=== PATIENT | male | born 1935 | race Caucasian/White ===

== ENCOUNTER 2018-09-27 18:21 | Inpatient (IN) | payer MEDICARE, MEDICAID ==
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
[2018-09-27 19:19] LABS: % BASOPHILS 0.8 % (0.0-2.0); % EOSINOPHILS 2.2 % (0.0-5.0); % LYMPHOCYTES 14.2 % (20.0-50.0); % MONOCYTES 11.6 % (2.0-10.0); % NEUTROPHILS 71.2 % (40.0-80.0); BASOPHILE ABSOLUTE 0.1 Th/cumm (0-0.2); EOSINOPHILE ABSOLUTE 0.2 Th/cmm (0.1-0.4); HEMATOCRIT 38.7 % (41.0-60); HEMOGLOBIN 12.8 gm/dL (12-16); LYMPHOCYTE ABSOLUTE 1.1 Th/cmm (1.5-3.0); MEAN CELL VOLUME 92.3 fl (80-99); MEAN CORPUSCULAR HEMOGLOBIN 30.5 pg (27.0-31.0); MEAN CORPUSCULAR HGB CONC 33.1 pg (28.0-36.0); MEAN PLATELET VOLUME 7.2 fl; MONOCYTE ABSOLUTE 0.9 Th/cmm (0.3-1.0); NEUTROPHILE ABSOLUTE 5.3 Th/cmm (1.8-8.0); PLATELET COUNT 297 Th/cmm (150-400); RED BLOOD COUNT 4.19 Mil/cmm (3.80-5.80); RED CELL DISTRIBUTION WIDTH 13.1 % (11.5-20.0); WHITE BLOOD COUNT 7.6 Th/cmm (4.8-10.8)
[2018-09-27 19:34] LABS: ALB/GLOB RATIO 1.2 (1.0-1.8); ALBUMIN 3.5 gm/dL (4.2-5.5); ALKALINE PHOSPHATASE 71 U/L (34-104); ANION GAP 12.9 (7.0-16.0); BILIRUBIN,TOTAL 0.2 mg/dL (0.3-1.0); BUN - UREA NITROGEN 10 mg/dL (7-25); CALCIUM SERUM 8.4 mg/dL (8.6-10.3); CARBON DIOXIDE 24.5 mEq/L (21.0-31.0); CHLORIDE 97 mEq/L (98-107); CHOLESTEROL 125 mg/dL (<200); CREATININE - SERUM 0.7 mg/dL (0.7-1.3); GLUCOSE 113 mg/dL (70-105); HDL -HIGH DENSITY LIPOPROTEIN 46 mg/dL (23-92); POTASSIUM SERUM 3.4 mEq/L (3.5-5.1); SGOT 18 U/L (13-39); SGPT/ALT 10 U/L (7-52); SODIUM SERUM 131 mEq/L (136-145); TOTAL PROTEIN,SERUM 6.5 gm/dL (6.0-8.3); TRIGLYCERIDES 68 mg/dL (<150)
[2018-09-27] MEDS ORDERED: Potassium Chloride 20 mEq ER Tab PO ONE ×2 (19:58→20:00)
[2018-09-27 20:26] VITALS: BP 142/78
[2018-09-27] MEDS ORDERED: Magnesium Hydroxide (MOM) 30 mL UDC PO PRN (20:33)
[2018-09-27] MEDS ORDERED: Potassium Chloride Elixir 20 mEq /15 mL UDC PO ONE (20:40)
[2018-09-27 21:17] LABS: URINE SOURCE CLEAN C
[2018-09-27 21:21] LABS: CHOLESTEROL 127 mg/dL (<200); HDL -HIGH DENSITY LIPOPROTEIN 47 mg/dL (23-92); TRIGLYCERIDES 69 mg/dL (<150)
[2018-09-27 21:23] LABS: URINE BILIRUBIN NEGATIVE (NEGATIVE); URINE BLOOD TRACE (NEGATIVE); URINE GLUCOSE (UA) NEGATIVE (NEGATIVE); URINE KETONE TRACE mg/dL (NEGATIVE); URINE LEUKOCYTE ESTERASE NEGATIVE (NEGATIVE); URINE MICROSCOPIC INDICATED? YES; URINE NITRATE NEGATIVE (NEGATIVE); URINE PROTEIN NEGATIVE (NEGATIVE); URINE UROBILINOGEN 0.2 E.U./dL (0.2 - 1.0)
[2018-09-27 21:26] LABS: URINE CLARITY CLEAR (CLEAR); URINE COLOR YELLOW
[2018-09-27 21:31] LABS: URINE BACTERIA NONE SEEN /hpf (NONE SEEN); URINE EPITHELIAL CELLS OCCASIONAL /lpf (FEW); URINE WBC 0-2 /hpf (0-5)
[2018-09-28] MEDS: Pantoprazole 40 mg EC Tab PO SCH (06:35)
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
[2018-09-28 11:14] LABS: ANION GAP 14.2 (7.0-16.0); CHLORIDE 98 mEq/L (98-107); POTASSIUM SERUM 4.2 mEq/L (3.5-5.1); SODIUM SERUM 132 mEq/L (136-145)
[2018-09-28 11:15] LABS: BUN - UREA NITROGEN 10 mg/dL (7-25); CREATININE - SERUM 0.8 mg/dL (0.7-1.3); GLUCOSE 115 mg/dL (70-105)
[2018-09-28 11:19] LABS: CALCIUM SERUM 8.4 mg/dL (8.6-10.3)
[2018-09-28 11:48] LABS: MAGNESIUM 1.9 mg/dL (1.9-2.7)
[2018-09-28] MEDS: Calcium Carb/Vit D 500 mg/200 U Tab PO SCH ×2 (16:01→19:05)
[2018-09-28] MEDS: Multivitamin w/ Minerals Tab PO SCH (16:01)
[2018-09-28] MEDS: Aspirin 81mg Chewable Tab PO SCH ×2 (16:01→19:03)
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
--- NOTE | 2018-09-29 05:17 | General Progress Note ---
Subjective - Review of Systems Service Date: 09/29/18 Subjective: Awake, alert but confused. Having bouts of loose stools and diarrhea VS BP142/66 P 107 R20 T100 Objective - Results Result Diagrams: 09/27/18 19:08 09/28/18 09:19 Recent Labs: Laboratory Last Values WBC 7.6 Th/cmm (4.8-10.8) 09/27/18 19:08 RBC 4.19 Mil/cmm (3.80-5.80) 09/27/18 19:08 Hgb 12.8 gm/dL (12-16) 09/27/18 19:08 Hct 38.7 % (41.0-60) L 09/27/18 19:08 MCV 92.3 fl (80-99) 09/27/18 19:08 MCH 30.5 pg (27.0-31.0) 09/27/18 19:08 MCHC Differential 33.1 pg (28.0-36.0) 09/27/18 19:08 RDW 13.1 % (11.5-20.0) 09/27/18 19:08 Plt Count 297 Th/cmm (150-400) 09/27/18 19:08 MPV 7.2 fl 09/27/18 19:08 Neutrophils % 71.2 % (40.0-80.0) 09/27/18 19:08 Lymphocytes % 14.2 % (20.0-50.0) L 09/27/18 19:08 Monocytes % 11.6 % (2.0-10.0) H 09/27/18 19:08 Eosinophils % 2.2 % (0.0-5.0) 09/27/18 19:08 Basophils % 0.8 % (0.0-2.0) 09/27/18 19:08 Sodium 132 mEq/L (136-145) L 09/28/18 09:19 Potassium 4.2 mEq/L (3.5-5.1) 09/28/18 09:19 Chloride 98 mEq/L (98-107) 09/28/18 09:19 Carbon Dioxide 24.0 mEq/L (21.0-31.0) 09/28/18 09:19 Anion Gap 14.2 (7.0-16.0) 09/28/18 09:19 BUN 10 mg/dL (7-25) 09/28/18 09:19 Creatinine 0.8 mg/dL (0.7-1.3) 09/28/18 09:19 Est GFR ( Amer) TNP 09/28/18 09:19 Est GFR (Non-Af Amer) TNP 09/28/18 09:19 BUN/Creatinine Ratio 12.5 09/28/18 09:19 Glucose 115 mg/dL (70-105) H 09/28/18 09:19 Calcium 8.4 mg/dL (8.6-10.3) L 09/28/18 09:19 Magnesium 1.9 mg/dL (1.9-2.7) 09/28/18 09:19 Total Bilirubin 0.2 mg/dL (0.3-1.0) L 09/27/18 19:08 AST 18 U/L (13-39) 09/27/18 19:08 ALT 10 U/L (7-52) 09/27/18 19:08 Alkaline Phosphatase 71 U/L (34-104) 09/27/18 19:08 Total Protein 6.5 gm/dL (6.0-8.3) 09/27/18 19:08 Albumin 3.5 gm/dL (4.2-5.5) L 09/27/18 19:08 Globulin 3.0 gm/dL 09/27/18 19:08 Albumin/Globulin Ratio 1.2 (1.0-1.8) 09/27/18 19:08 Triglycerides 69 mg/dL (<150) 09/27/18 19:08 Cholesterol 127 mg/dL (<200) 09/27/18 19:08 LDL Cholesterol Direct 67 mg/dL (75-193) L 09/27/18 19:08 HDL Cholesterol 47 mg/dL (23-92) 09/27/18 19:08 TSH 0.76 uIU/ml (0.34-5.60) 09/27/18 19:08 Urine Source CLEAN C 09/27/18 19:33 Urine Color YELLOW 09/27/18 19:33 Urine Clarity CLEAR (CLEAR) 09/27/18 19:33 Urine pH 6.0 (4.6 - 8.0) 09/27/18 19:33 Ur Specific [place] 1.025 (1.005-1.030) 09/27/18 19:33 Urine Protein NEGATIVE mg/dL (NEGATIVE) 09/27/18 19:33 Urine Glucose (UA) NEGATIVE mg/dL (NEGATIVE) 09/27/18 19:33 Urine Ketones TRACE mg/dL (NEGATIVE) 09/27/18 19:33 Urine Blood TRACE (NEGATIVE) 09/27/18 19:33 Urine Nitrate NEGATIVE (NEGATIVE) 09/27/18 19:33 Urine Bilirubin NEGATIVE (NEGATIVE) 09/27/18 19:33 Urine Urobilinogen 0.2 E.U./dL (0.2 - 1.0) 09/27/18 19:33 Ur Leukocyte Esterase NEGATIVE (NEGATIVE) 09/27/18 19:33 Urine RBC 2-5 /hpf (0-5) H 09/27/18 19:33 Urine WBC 0-2 /hpf (0-5) 09/27/18 19:33 Ur Epithelial Cells OCCASIONAL /lpf (FEW) 09/27/18 19:33 Urine Bacteria NONE SEEN /hpf (NONE SEEN) 09/27/18 19:33 Urine Mucus FEW /lpf (FEW) 09/27/18 19:33 Valproic Acid 46.5 ug/mL (50.0-100.0) L 09/27/18 19:08 RPR NONREACTIVE (NONREACTIVE) 09/27/18 19:08 - Physical Exam Vitals and I&O: Vital Signs Temp 100.0 F 09/28/18 21:25 Pulse 107 09/28/18 21:25 Resp 20 09/28/18 21:25 BP 142/66 09/28/18 21:25 Pulse Ox 92 09/28/18 21:25 Intake & Output 09/28/18 09/28/18 09/29/18 06:59 18:59 06:59 Intake Total 850 240 Balance 850 240 Intake: Oral 850 240 Other: # Voids 3 2 # Bowel Movements 1 1 Stool Characteristics Soft Soft Liquid Formed Formed Active Medications: Current Medications Acetaminophen (Tylenol) 650 mg PO Q4H PRN PRN Reason: PAIN AND FEVER >100 Aspirin (Aspirin Chewable) 81 mg PO 0900 [facility] Stop: 11/27/18 08:59 Last Admin: 09/28/18 19:03 Dose: 81 mg Calcium/Vitamin D (Oscal W/Vitamin D) 1 tab PO DAILY ANDI Stop: 11/27/18 08:59 Last Admin: 09/28/18 19:05 Dose: 1 tab Divalproex Sodium (Depakote Dr) 500 mg PO HS [facility]; Protocol Stop: 11/27/18 20:59 Last Admin: 09/28/18 20:40 Dose: 500 mg Lisinopril (Zestril) 10 mg PO 0900 [facility]I Stop: 11/27/18 08:59 Last Admin: 09/28/18 19:04 Dose: 10 mg Lorazepam (Ativan) 0.5 mg PO Q4HR PRN; Protocol PRN Reason: Anxiety Stop: 10/27/18 21:42 Last Admin: 09/28/18 17:59 Dose: 0.5 mg Magnesium Hydroxide (Milk Of Magnesia) 30 ml PO DAILY PRN PRN Reason: IF NO BM IN 2 DAYS Stop: 11/26/18 20:32 Pantoprazole Sodium (Protonix) 40 mg PO QDAC [facility] Stop: 11/27/18 07:29 Last Admin: 09/28/18 06:35 Dose: 40 mg Zolpidem Tartrate (Ambien) 5 mg PO HS PRN PRN Reason: Insomnia Stop: 11/26/18 21:42 Last Admin: 09/29/18 00:43 Dose: 5 mg General: Alert, No acute distress HEENT: Atraumatic, PERRLA, EOMI Neck: Supple Cardiovascular: Regular rate Abdomen: Bowel sounds, Soft, no Distended Extremities: no Clubbing, no Cyanosis, no Edema Neurological: Normal gait - Procedures Procedures: Procedures Procedure Code Date OTHER GROUP THERAPY 94.44 07/18/12 RECREATIONAL THERAPY 93.81 07/18/12 Assessment/Plan - Problem List Patient Problems: All Active Problems COMBATIVENESS AND DEPRESSION (Acute) - Assessment Assessment: Current Active Problems Problem Status Onset COMBATIVENESS AND DEPRESSION Acute Agitation Dementia hypokalemia hyponatremia HTN DM Hyperlipidemia h/o TIA Mastoiditis PUD/GERD DJD Diarrhea - Plan Plan: admit to [facility] repeat labwork will add Lomotil
[2018-09-29] MEDS: Calcium Carb/Vit D 500 mg/200 U Tab PO SCH (08:37)
[2018-09-29] MEDS: Multivitamin w/ Minerals Tab PO SCH (08:37)
[2018-09-29] MEDS: Aspirin 81mg Chewable Tab PO SCH (08:39)
--- NOTE | 2018-09-29 15:47 | Progress Notes ---
DATE: 09/29/2018 SUBJECTIVE: Staff was spoken to. The patient is interviewed. Mood is noted to be irritable. Affect is constricted. Insight and judgment at this time are noted very much impaired, getting easily irritable and angry. The patient has no insight into his illness. Coping skills are also to be extremely poor. ASSESSMENT: The patient is still impulsive. PLAN: To continue the patient with Depakote and followup. [facility]# [id number]
[2018-09-29] MEDS: Diphenoxylate/Atropine 2.5mg Tab PO PRN (17:32)
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
--- NOTE | 2018-09-30 05:42 | General Progress Note ---
Subjective - Review of Systems Service Date: 09/30/18 Subjective: Awake, alert but confused. Having bouts of loose stools and diarrhea VS BP129/61 P 84 R18 T97.8 Objective - Results Result Diagrams: 09/27/18 19:08 09/28/18 09:19 Recent Labs: Laboratory Last Values WBC 7.6 Th/cmm (4.8-10.8) 09/27/18 19:08 RBC 4.19 Mil/cmm (3.80-5.80) 09/27/18 19:08 Hgb 12.8 gm/dL (12-16) 09/27/18 19:08 Hct 38.7 % (41.0-60) L 09/27/18 19:08 MCV 92.3 fl (80-99) 09/27/18 19:08 MCH 30.5 pg (27.0-31.0) 09/27/18 19:08 MCHC Differential 33.1 pg (28.0-36.0) 09/27/18 19:08 RDW 13.1 % (11.5-20.0) 09/27/18 19:08 Plt Count 297 Th/cmm (150-400) 09/27/18 19:08 MPV 7.2 fl 09/27/18 19:08 Neutrophils % 71.2 % (40.0-80.0) 09/27/18 19:08 Lymphocytes % 14.2 % (20.0-50.0) L 09/27/18 19:08 Monocytes % 11.6 % (2.0-10.0) H 09/27/18 19:08 Eosinophils % 2.2 % (0.0-5.0) 09/27/18 19:08 Basophils % 0.8 % (0.0-2.0) 09/27/18 19:08 Sodium 132 mEq/L (136-145) L 09/28/18 09:19 Potassium 4.2 mEq/L (3.5-5.1) 09/28/18 09:19 Chloride 98 mEq/L (98-107) 09/28/18 09:19 Carbon Dioxide 24.0 mEq/L (21.0-31.0) 09/28/18 09:19 Anion Gap 14.2 (7.0-16.0) 09/28/18 09:19 BUN 10 mg/dL (7-25) 09/28/18 09:19 Creatinine 0.8 mg/dL (0.7-1.3) 09/28/18 09:19 Est GFR ( Amer) TNP 09/28/18 09:19 Est GFR (Non-Af Amer) TNP 09/28/18 09:19 BUN/Creatinine Ratio 12.5 09/28/18 09:19 Glucose 115 mg/dL (70-105) H 09/28/18 09:19 Calcium 8.4 mg/dL (8.6-10.3) L 09/28/18 09:19 Magnesium 1.9 mg/dL (1.9-2.7) 09/28/18 09:19 Total Bilirubin 0.2 mg/dL (0.3-1.0) L 09/27/18 19:08 AST 18 U/L (13-39) 09/27/18 19:08 ALT 10 U/L (7-52) 09/27/18 19:08 Alkaline Phosphatase 71 U/L (34-104) 09/27/18 19:08 Total Protein 6.5 gm/dL (6.0-8.3) 09/27/18 19:08 Albumin 3.5 gm/dL (4.2-5.5) L 09/27/18 19:08 Globulin 3.0 gm/dL 09/27/18 19:08 Albumin/Globulin Ratio 1.2 (1.0-1.8) 09/27/18 19:08 Triglycerides 69 mg/dL (<150) 09/27/18 19:08 Cholesterol 127 mg/dL (<200) 09/27/18 19:08 LDL Cholesterol Direct 67 mg/dL (75-193) L 09/27/18 19:08 HDL Cholesterol 47 mg/dL (23-92) 09/27/18 19:08 TSH 0.76 uIU/ml (0.34-5.60) 09/27/18 19:08 Urine Source CLEAN C 09/27/18 19:33 Urine Color YELLOW 09/27/18 19:33 Urine Clarity CLEAR (CLEAR) 09/27/18 19:33 Urine pH 6.0 (4.6 - 8.0) 09/27/18 19:33 Ur Specific [place] 1.025 (1.005-1.030) 09/27/18 19:33 Urine Protein NEGATIVE mg/dL (NEGATIVE) 09/27/18 19:33 Urine Glucose (UA) NEGATIVE mg/dL (NEGATIVE) 09/27/18 19:33 Urine Ketones TRACE mg/dL (NEGATIVE) 09/27/18 19:33 Urine Blood TRACE (NEGATIVE) 09/27/18 19:33 Urine Nitrate NEGATIVE (NEGATIVE) 09/27/18 19:33 Urine Bilirubin NEGATIVE (NEGATIVE) 09/27/18 19:33 Urine Urobilinogen 0.2 E.U./dL (0.2 - 1.0) 09/27/18 19:33 Ur Leukocyte Esterase NEGATIVE (NEGATIVE) 09/27/18 19:33 Urine RBC 2-5 /hpf (0-5) H 09/27/18 19:33 Urine WBC 0-2 /hpf (0-5) 09/27/18 19:33 Ur Epithelial Cells OCCASIONAL /lpf (FEW) 09/27/18 19:33 Urine Bacteria NONE SEEN /hpf (NONE SEEN) 09/27/18 19:33 Urine Mucus FEW /lpf (FEW) 09/27/18 19:33 Valproic Acid 46.5 ug/mL (50.0-100.0) L 09/27/18 19:08 RPR NONREACTIVE (NONREACTIVE) 09/27/18 19:08 - Physical Exam Vitals and I&O: Vital Signs Temp 97.8 F 09/29/18 20:00 Pulse 84 09/29/18 20:00 Resp 18 09/29/18 20:00 BP 129/61 09/29/18 20:00 Pulse Ox 97 09/29/18 20:00 Intake & Output 09/29/18 09/29/18 09/30/18 06:59 18:59 05:59 Intake Total 240 760 Balance 240 760 Intake: Oral 240 760 Other: # Voids 2 5 # Bowel Movements 1 6 Stool Characteristics Liquid Soft Active Medications: Current Medications Acetaminophen (Tylenol) 650 mg PO Q4H PRN PRN Reason: PAIN AND FEVER >100 Aspirin (Aspirin Chewable) 81 mg PO 0900 [facility] Stop: 11/27/18 08:59 Last Admin: 09/29/18 08:39 Dose: 81 mg Calcium/Vitamin D (Oscal W/Vitamin D) 1 tab PO DAILY [facility] Stop: 11/27/18 08:59 Last Admin: 09/29/18 08:37 Dose: 1 tab Diphenoxylate HCl/Atropine (Lomotil) 1 tab PO TID PRN PRN Reason: Diarrhea Stop: 11/28/18 06:00 Last Admin: 09/29/18 17:32 Dose: 1 tab Divalproex Sodium (Depakote Dr) 500 mg PO HS [facility]; Protocol Stop: 11/27/18 20:59 Last Admin: 09/29/18 21:00 Dose: 500 mg Lisinopril (Zestril) 10 mg PO 0900 [facility] Stop: 11/27/18 08:59 Last Admin: 09/29/18 08:37 Dose: 10 mg Lorazepam (Ativan) 0.5 mg PO Q4HR PRN; Protocol PRN Reason: Anxiety Stop: 10/27/18 21:42 Last Admin: 09/28/18 17:59 Dose: 0.5 mg Magnesium Hydroxide (Milk Of Magnesia) 30 ml PO DAILY PRN PRN Reason: IF NO BM IN 2 DAYS Stop: 11/26/18 20:32 Pantoprazole Sodium (Protonix) 40 mg PO QDAC [facility] Stop: 11/27/18 07:29 Last Admin: 09/28/18 06:35 Dose: 40 mg Zolpidem Tartrate (Ambien) 5 mg PO HS PRN PRN Reason: Insomnia Stop: 11/26/18 21:42 Last Admin: 09/29/18 21:08 Dose: 5 mg General: Alert, No acute distress HEENT: Atraumatic, PERRLA, EOMI Neck: Supple Cardiovascular: Regular rate Abdomen: Bowel sounds, Soft, no Distended Extremities: no Clubbing, no Cyanosis, no Edema Neurological: Normal gait - Procedures Procedures: Procedures Procedure Code Date OTHER GROUP THERAPY 94.44 07/18/12 RECREATIONAL THERAPY 93.81 07/18/12 Assessment/Plan - Problem List Patient Problems: All Active Problems COMBATIVENESS AND DEPRESSION (Acute) - Assessment Assessment: Current Active Problems Problem Status Onset COMBATIVENESS AND DEPRESSION Acute Agitation Dementia hypokalemia hyponatremia HTN DM Hyperlipidemia h/o TIA Mastoiditis PUD/GERD DJD Diarrhea - Plan Plan: admit [facility] repeat labwork will add Lomotil
[2018-09-30] MEDS: Pantoprazole 40 mg EC Tab PO SCH (07:03)
[2018-09-30] MEDS: Aspirin 81mg Chewable Tab PO SCH (09:30)
[2018-09-30] MEDS: Diphenoxylate/Atropine 2.5mg Tab PO PRN ×3 (09:30→22:42)
[2018-09-30] MEDS: Multivitamin w/ Minerals Tab PO SCH (09:30)
[2018-09-30] MEDS: Calcium Carb/Vit D 500 mg/200 U Tab PO SCH (09:30)
--- NOTE | 2018-10-01 02:47 | Progress Notes ---
DATE: 09/30/2018 PSYCHIATRIC PROGRESS NOTE SUBJECTIVE: Staff was spoken to. The patient is interviewed. Mood is noted to be dysphoric. Coping skills are noted to be very poor. Insight and judgment are noted to be still impaired. No side effects to the medications are noted. The patient is having difficult time to cope with the stress. The patient has no insight into his illness. The patient gets easily upset. ASSESSMENT: The patient is still impulsive and needs to be redirected. PLAN: To closely monitor the patient and continue the valproic acid and follow the patient. JOB# [id number]
[2018-10-01] MEDS: Pantoprazole 40 mg EC Tab PO SCH (06:40)
--- NOTE | 2018-10-01 08:22 | General Progress Note ---
Subjective - Review of Systems Service Date: 10/01/18 Subjective: Awake, alert but confused. Having bouts of loose stools and diarrhea VS BP105/51 P 69 R15 T97.2 Objective - Results Result Diagrams: 09/27/18 19:08 09/28/18 09:19 Recent Labs: Laboratory Last Values WBC 7.6 Th/cmm (4.8-10.8) 09/27/18 19:08 RBC 4.19 Mil/cmm (3.80-5.80) 09/27/18 19:08 Hgb 12.8 gm/dL (12-16) 09/27/18 19:08 Hct 38.7 % (41.0-60) L 09/27/18 19:08 MCV 92.3 fl (80-99) 09/27/18 19:08 MCH 30.5 pg (27.0-31.0) 09/27/18 19:08 MCHC Differential 33.1 pg (28.0-36.0) 09/27/18 19:08 RDW 13.1 % (11.5-20.0) 09/27/18 19:08 Plt Count 297 Th/cmm (150-400) 09/27/18 19:08 MPV 7.2 fl 09/27/18 19:08 Neutrophils % 71.2 % (40.0-80.0) 09/27/18 19:08 Lymphocytes % 14.2 % (20.0-50.0) L 09/27/18 19:08 Monocytes % 11.6 % (2.0-10.0) H 09/27/18 19:08 Eosinophils % 2.2 % (0.0-5.0) 09/27/18 19:08 Basophils % 0.8 % (0.0-2.0) 09/27/18 19:08 Sodium 132 mEq/L (136-145) L 09/28/18 09:19 Potassium 4.2 mEq/L (3.5-5.1) 09/28/18 09:19 Chloride 98 mEq/L (98-107) 09/28/18 09:19 Carbon Dioxide 24.0 mEq/L (21.0-31.0) 09/28/18 09:19 Anion Gap 14.2 (7.0-16.0) 09/28/18 09:19 BUN 10 mg/dL (7-25) 09/28/18 09:19 Creatinine 0.8 mg/dL (0.7-1.3) 09/28/18 09:19 Est GFR ( Amer) TNP 09/28/18 09:19 Est GFR (Non-Af Amer) TNP 09/28/18 09:19 BUN/Creatinine Ratio 12.5 09/28/18 09:19 Glucose 115 mg/dL (70-105) H 09/28/18 09:19 Calcium 8.4 mg/dL (8.6-10.3) L 09/28/18 09:19 Magnesium 1.9 mg/dL (1.9-2.7) 09/28/18 09:19 Total Bilirubin 0.2 mg/dL (0.3-1.0) L 09/27/18 19:08 AST 18 U/L (13-39) 09/27/18 19:08 ALT 10 U/L (7-52) 09/27/18 19:08 Alkaline Phosphatase 71 U/L (34-104) 09/27/18 19:08 Total Protein 6.5 gm/dL (6.0-8.3) 09/27/18 19:08 Albumin 3.5 gm/dL (4.2-5.5) L 09/27/18 19:08 Globulin 3.0 gm/dL 09/27/18 19:08 Albumin/Globulin Ratio 1.2 (1.0-1.8) 09/27/18 19:08 Triglycerides 69 mg/dL (<150) 09/27/18 19:08 Cholesterol 127 mg/dL (<200) 09/27/18 19:08 LDL Cholesterol Direct 67 mg/dL (75-193) L 09/27/18 19:08 HDL Cholesterol 47 mg/dL (23-92) 09/27/18 19:08 TSH 0.76 uIU/ml (0.34-5.60) 09/27/18 19:08 Urine Source CLEAN C 09/27/18 19:33 Urine Color YELLOW 09/27/18 19:33 Urine Clarity CLEAR (CLEAR) 09/27/18 19:33 Urine pH 6.0 (4.6 - 8.0) 09/27/18 19:33 Ur Specific [place] 1.025 (1.005-1.030) 09/27/18 19:33 Urine Protein NEGATIVE mg/dL (NEGATIVE) 09/27/18 19:33 Urine Glucose (UA) NEGATIVE mg/dL (NEGATIVE) 09/27/18 19:33 Urine Ketones TRACE mg/dL (NEGATIVE) 09/27/18 19:33 Urine Blood TRACE (NEGATIVE) 09/27/18 19:33 Urine Nitrate NEGATIVE (NEGATIVE) 09/27/18 19:33 Urine Bilirubin NEGATIVE (NEGATIVE) 09/27/18 19:33 Urine Urobilinogen 0.2 E.U./dL (0.2 - 1.0) 09/27/18 19:33 Ur Leukocyte Esterase NEGATIVE (NEGATIVE) 09/27/18 19:33 Urine RBC 2-5 /hpf (0-5) H 09/27/18 19:33 Urine WBC 0-2 /hpf (0-5) 09/27/18 19:33 Ur Epithelial Cells OCCASIONAL /lpf (FEW) 09/27/18 19:33 Urine Bacteria NONE SEEN /hpf (NONE SEEN) 09/27/18 19:33 Urine Mucus FEW /lpf (FEW) 09/27/18 19:33 Valproic Acid 46.5 ug/mL (50.0-100.0) L 09/27/18 19:08 RPR NONREACTIVE (NONREACTIVE) 09/27/18 19:08 - Physical Exam Vitals and I&O: Vital Signs Temp 97.2 F 10/01/18 07:06 Pulse 101 10/01/18 07:06 Resp 15 10/01/18 07:06 BP 105/51 10/01/18 07:06 Pulse Ox 95 10/01/18 07:06 Intake & Output 09/30/18 10/01/18 10/01/18 18:59 06:59 18:59 Intake Total 700 120 Balance 700 120 Intake: Oral 700 120 Other: # Voids 2 3 # Bowel Movements 3 3 Stool Characteristics Liquid Active Medications: Current Medications Acetaminophen (Tylenol) 650 mg PO Q4H PRN PRN Reason: PAIN AND FEVER >100 Aspirin (Aspirin Chewable) 81 mg PO 0900 [facility] Stop: 11/27/18 08:59 Last Admin: 09/30/18 09:30 Dose: 81 mg Calcium/Vitamin D (Oscal W/Vitamin D) 1 tab PO DAILY [facility] Stop: 11/27/18 08:59 Last Admin: 09/30/18 09:30 Dose: 1 tab Diphenoxylate HCl/Atropine (Lomotil) 1 tab PO TID PRN PRN Reason: Diarrhea Stop: 11/28/18 06:00 Last Admin: 09/30/18 22:42 Dose: 1 tab Divalproex Sodium (Depakote Dr) 500 mg PO HS [facility]; Protocol Stop: 11/27/18 20:59 Last Admin: 09/30/18 20:37 Dose: 500 mg Lisinopril (Zestril) 10 mg PO 0900 [facility] Stop: 11/27/18 08:59 Last Admin: 09/30/18 09:31 Dose: 10 mg Lorazepam (Ativan) 0.5 mg PO Q4HR PRN; Protocol PRN Reason: Anxiety Stop: 10/27/18 21:42 Last Admin: 09/28/18 17:59 Dose: 0.5 mg Magnesium Hydroxide (Milk Of Magnesia) 30 ml PO DAILY PRN PRN Reason: IF NO BM IN 2 DAYS Stop: 11/26/18 20:32 Pantoprazole Sodium (Protonix) 40 mg PO QDAC [facility] Stop: 11/27/18 07:29 Last Admin: 10/01/18 06:40 Dose: 40 mg Zolpidem Tartrate (Ambien) 5 mg PO HS PRN PRN Reason: Insomnia Stop: 11/26/18 21:42 Last Admin: 09/30/18 20:37 Dose: 5 mg General: Alert, No acute distress HEENT: Atraumatic, PERRLA, EOMI Neck: Supple Cardiovascular: Regular rate Abdomen: Bowel sounds, Soft, no Distended Extremities: no Clubbing, no Cyanosis, no Edema Neurological: Normal gait - Procedures Procedures: Procedures Procedure Code Date OTHER GROUP THERAPY 94.44 07/18/12 RECREATIONAL THERAPY 93.81 07/18/12 Assessment/Plan - Problem List Patient Problems: All Active Problems COMBATIVENESS AND DEPRESSION (Acute) - Assessment Assessment: Current Active Problems Problem Status Onset COMBATIVENESS AND DEPRESSION Acute Agitation Dementia hypokalemia hyponatremia HTN DM Hyperlipidemia h/o TIA Mastoiditis PUD/GERD DJD Diarrhea - Plan Plan: admit to [facility] repeat labwork will add Lomotil
[2018-10-01] MEDS: Aspirin 81mg Chewable Tab PO SCH (09:41)
[2018-10-01] MEDS: Multivitamin w/ Minerals Tab PO SCH (09:41)
[2018-10-01] MEDS: Calcium Carb/Vit D 500 mg/200 U Tab PO SCH (09:41)
[2018-10-01] MEDS: Diphenoxylate/Atropine 2.5mg Tab PO PRN ×2 (10:31→15:06)
--- NOTE | 2018-10-01 21:18 | Progress Notes ---
DATE: 10/01/2018 PSYCHIATRIC PROGRESS NOTE SUBJECTIVE: Staff was spoken to. The patient is interviewed. Mood is noted to be irritable. Affect is constricted. Insight and judgment at this site impaired. Impulse control is noted to be limited. Coping skills are noted to be limited. The patient has been having difficult time to cope with the stress. The patient has been getting easily frustrated and irritable when he is redirected. No side effects to the medications are noted at this time. The patient is currently on 500 mg of Depakote. ASSESSMENT: The patient is still impulsive. PLAN: To continue the patient with the supportive therapy and followup. JOB# [id number]
[2018-10-02] MEDS: Pantoprazole 40 mg EC Tab PO SCH (06:34)
--- NOTE | 2018-10-02 08:13 | General Progress Note ---
Subjective - Review of Systems Service Date: 10/02/18 Subjective: Awake, alert but confused. Having bouts of loose stools and diarrhea VS BP105/55 P 94 R18 T97.8 Objective - Results Result Diagrams: 09/27/18 19:08 09/28/18 09:19 Recent Labs: Laboratory Last Values WBC 7.6 Th/cmm (4.8-10.8) 09/27/18 19:08 RBC 4.19 Mil/cmm (3.80-5.80) 09/27/18 19:08 Hgb 12.8 gm/dL (12-16) 09/27/18 19:08 Hct 38.7 % (41.0-60) L 09/27/18 19:08 MCV 92.3 fl (80-99) 09/27/18 19:08 MCH 30.5 pg (27.0-31.0) 09/27/18 19:08 MCHC Differential 33.1 pg (28.0-36.0) 09/27/18 19:08 RDW 13.1 % (11.5-20.0) 09/27/18 19:08 Plt Count 297 Th/cmm (150-400) 09/27/18 19:08 MPV 7.2 fl 09/27/18 19:08 Neutrophils % 71.2 % (40.0-80.0) 09/27/18 19:08 Lymphocytes % 14.2 % (20.0-50.0) L 09/27/18 19:08 Monocytes % 11.6 % (2.0-10.0) H 09/27/18 19:08 Eosinophils % 2.2 % (0.0-5.0) 09/27/18 19:08 Basophils % 0.8 % (0.0-2.0) 09/27/18 19:08 Sodium 132 mEq/L (136-145) L 09/28/18 09:19 Potassium 4.2 mEq/L (3.5-5.1) 09/28/18 09:19 Chloride 98 mEq/L (98-107) 09/28/18 09:19 Carbon Dioxide 24.0 mEq/L (21.0-31.0) 09/28/18 09:19 Anion Gap 14.2 (7.0-16.0) 09/28/18 09:19 BUN 10 mg/dL (7-25) 09/28/18 09:19 Creatinine 0.8 mg/dL (0.7-1.3) 09/28/18 09:19 Est GFR ( Amer) TNP 09/28/18 09:19 Est GFR (Non-Af Amer) TNP 09/28/18 09:19 BUN/Creatinine Ratio 12.5 09/28/18 09:19 Glucose 115 mg/dL (70-105) H 09/28/18 09:19 Calcium 8.4 mg/dL (8.6-10.3) L 09/28/18 09:19 Magnesium 1.9 mg/dL (1.9-2.7) 09/28/18 09:19 Total Bilirubin 0.2 mg/dL (0.3-1.0) L 09/27/18 19:08 AST 18 U/L (13-39) 09/27/18 19:08 ALT 10 U/L (7-52) 09/27/18 19:08 Alkaline Phosphatase 71 U/L (34-104) 09/27/18 19:08 Total Protein 6.5 gm/dL (6.0-8.3) 09/27/18 19:08 Albumin 3.5 gm/dL (4.2-5.5) L 09/27/18 19:08 Globulin 3.0 gm/dL 09/27/18 19:08 Albumin/Globulin Ratio 1.2 (1.0-1.8) 09/27/18 19:08 Triglycerides 69 mg/dL (<150) 09/27/18 19:08 Cholesterol 127 mg/dL (<200) 09/27/18 19:08 LDL Cholesterol Direct 67 mg/dL (75-193) L 09/27/18 19:08 HDL Cholesterol 47 mg/dL (23-92) 09/27/18 19:08 TSH 0.76 uIU/ml (0.34-5.60) 09/27/18 19:08 Urine Source CLEAN C 09/27/18 19:33 Urine Color YELLOW 09/27/18 19:33 Urine Clarity CLEAR (CLEAR) 09/27/18 19:33 Urine pH 6.0 (4.6 - 8.0) 09/27/18 19:33 Ur Specific [place] 1.025 (1.005-1.030) 09/27/18 19:33 Urine Protein NEGATIVE mg/dL (NEGATIVE) 09/27/18 19:33 Urine Glucose (UA) NEGATIVE mg/dL (NEGATIVE) 09/27/18 19:33 Urine Ketones TRACE mg/dL (NEGATIVE) 09/27/18 19:33 Urine Blood TRACE (NEGATIVE) 09/27/18 19:33 Urine Nitrate NEGATIVE (NEGATIVE) 09/27/18 19:33 Urine Bilirubin NEGATIVE (NEGATIVE) 09/27/18 19:33 Urine Urobilinogen 0.2 E.U./dL (0.2 - 1.0) 09/27/18 19:33 Ur Leukocyte Esterase NEGATIVE (NEGATIVE) 09/27/18 19:33 Urine RBC 2-5 /hpf (0-5) H 09/27/18 19:33 Urine WBC 0-2 /hpf (0-5) 09/27/18 19:33 Ur Epithelial Cells OCCASIONAL /lpf (FEW) 09/27/18 19:33 Urine Bacteria NONE SEEN /hpf (NONE SEEN) 09/27/18 19:33 Urine Mucus FEW /lpf (FEW) 09/27/18 19:33 Valproic Acid 46.5 ug/mL (50.0-100.0) L 09/27/18 19:08 RPR NONREACTIVE (NONREACTIVE) 09/27/18 19:08 - Physical Exam Vitals and I&O: Vital Signs Temp 97.8 F 10/02/18 06:02 Pulse 94 10/02/18 06:02 Resp 18 10/02/18 06:02 BP 105/55 10/02/18 06:02 Pulse Ox 99 10/02/18 06:02 Intake & Output 10/01/18 10/02/18 10/02/18 18:59 06:59 18:59 Intake Total 900 120 Balance 900 120 Intake: Oral 900 120 Other: # Voids 3 2 # Bowel Movements 1 2 Stool Characteristics Liquid Liquid Active Medications: Current Medications Acetaminophen (Tylenol) 650 mg PO Q4H PRN PRN Reason: PAIN AND FEVER >100 Aspirin (Aspirin Chewable) 81 mg PO 0900 [facility] Stop: 11/27/18 08:59 Last Admin: 10/01/18 09:41 Dose: Not Given Calcium/Vitamin D (Oscal W/Vitamin D) 1 tab PO DAILY [facility] Stop: 11/27/18 08:59 Last Admin: 10/01/18 09:41 Dose: Not Given Diphenoxylate HCl/Atropine (Lomotil) 1 tab PO TID PRN PRN Reason: Diarrhea Stop: 11/28/18 06:00 Last Admin: 10/01/18 15:06 Dose: 1 tab Divalproex Sodium (Depakote Dr) 500 mg PO HS [facility]; Protocol Stop: 11/27/18 20:59 Last Admin: 10/01/18 20:44 Dose: 500 mg Lisinopril (Zestril) 10 mg PO 0900 [facility] Stop: 11/27/18 08:59 Last Admin: 10/01/18 10:30 Dose: 10 mg Lorazepam (Ativan) 0.5 mg PO Q4HR PRN; Protocol PRN Reason: Anxiety Stop: 10/27/18 21:42 Last Admin: 09/28/18 17:59 Dose: 0.5 mg Magnesium Hydroxide (Milk Of Magnesia) 30 ml PO DAILY PRN PRN Reason: IF NO BM IN 2 DAYS Stop: 11/26/18 20:32 Metronidazole (Flagyl) 500 mg PO TID [facility] Stop: 10/11/18 13:59 Last Admin: 10/01/18 20:44 Dose: 500 mg Pantoprazole Sodium (Protonix) 40 mg PO QDAC [facility] Stop: 11/27/18 07:29 Last Admin: 10/02/18 06:34 Dose: 40 mg Zolpidem Tartrate (Ambien) 5 mg PO HS PRN PRN Reason: Insomnia Stop: 11/26/18 21:42 Last Admin: 10/02/18 00:43 Dose: 5 mg General: Alert, No acute distress HEENT: Atraumatic, PERRLA, EOMI Neck: Supple Cardiovascular: Regular rate Abdomen: Bowel sounds, Soft, no Distended Extremities: no Clubbing, no Cyanosis, no Edema Neurological: Normal gait - Procedures Procedures: Procedures Procedure Code Date OTHER GROUP THERAPY 94.44 07/18/12 RECREATIONAL THERAPY 93.81 07/18/12 Assessment/Plan - Problem List Patient Problems: All Active Problems COMBATIVENESS AND DEPRESSION (Acute) - Assessment Assessment: Current Active Problems Problem Status Onset COMBATIVENESS AND DEPRESSION Acute Agitation Dementia hypokalemia hyponatremia HTN DM Hyperlipidemia h/o TIA Mastoiditis PUD/GERD DJD Diarrhea - Plan Plan: admit to [facility] repeat labwork will add Lomotil Nutritional Asmnt/Malnutr-PDOC - Dietary Evaluation Malnutrition Findings (Please click <Entered> for more info): Nutritional Asmnt/Malnutrition Start: 10/01/18 17: 07 Text: Status: Complete Freq: Protocol: Document 10/01/18 17:07 PATRICIA (Rec: 10/01/18 17:17 [email or web address]) Nutritional Asmnt/Malnutrition Patient General Information Nutritional Screening Moderate Risk Diagnosis psychosis Pertinent Medical Hx/Surgical Hx HTN, Dm, dyslipidemia, PUD/ GERD, arthritis, DJD, dementia , hyperlipidemia, neurovascular disease Subjective Information Per nurse, pt had diarrhea from yesterday 09/30, liquid stool. Per EMR, PO intake 25- 50% over the past weekend. Pt is very confused noted. Current Diet Order/ Nutrition Support mech soft chopped, SHARONDA Pertinent Medications oscal w/vit D, protonix Pertinent Labs 09/28 Na 132, glucose 115, Ca 8 .4 Nutritional Hx/Data Height 1.6 m Height (Calculated Centimeters) 160.0 Current Weight (lbs) 65.771 kg Weight (Calculated Kilograms) 65.8 Weight (Calculated Grams) 85987.9 [place] Body Weight 124 Body Mass Index (BMI) 25.7 Weight Status Overweight GI Symptoms GI Symptoms None Last BM 10/01 x 3 Difficult in: None Skin Integrity/Comment: dryness Current %PO Poor (25-49%) Estimated Nutritional Goals BEE in Kcals: Using Current wt Calories/Kcals/Kg 23-27 Kcals Calculated 0490-9433 Protein: Using Current wt Protein g/k Protein Calculated 66 Fluid: ml 1518-1782ml (1ml/kcal) Nutritional Problem 1. Problem Problem inadequate food intake Etiology possible poor appetite or confusion Signs/Symptoms: PO intake 25-30% not meeting nutritional needs. Malnutrition Alert Is there a minimum of two criteria No selected? Query Text:Check all the applicable criteria. A minimum of two criteria are recommended for diagnosis of either severe or non-severe malnutrition. Malnutrition Related to Morbid Obesity Malnutrition related to morbid obesity No Intervention/Recommendation Comments 1. Continue with mech soft chopped NASdiet as ordered. Add Ensure Enlive TID to increase nutrition intake. 2. Monitor PO intake, wt, labs and skin integrity 3. F/U as moderate risk in 3-5 days, 10/04-10/06, PO check Expected Outcomes/Goals Expected Outcomes/Goals 1. PO intake to meet at least 75% of nutritional needs. 2. Wt stability, skin to remain intact, labs to approach WNL.
[2018-10-02] MEDS: Calcium Carb/Vit D 500 mg/200 U Tab PO SCH (08:46)
[2018-10-02] MEDS: Multivitamin w/ Minerals Tab PO SCH (08:47)
[2018-10-02] MEDS: Diphenoxylate/Atropine 2.5mg Tab PO PRN (09:30)
[2018-10-02] MEDS: Aspirin 81mg Chewable Tab PO SCH (09:30)
== END 2018-10-02 12:03 | disposition short-term general hospital (02) | DRG 885 ==
LOC: ER 18:21 → GERO 19:59
PROVIDERS: ADMIT Psychiatry & Neurology Psychiatry; ATTEND Psychiatry & Neurology Psychiatry
DX: F39 Unspecified mood [affective] disorder (principal); E87.1 Hypo-osmolality and hyponatremia; F03.91 Unspecified dementia, unspecified severity, with behavioral disturbance; I10 Essential (primary) hypertension; E11.9 Type 2 diabetes mellitus without complications; E78.5 Hyperlipidemia, unspecified; K21.9 Gastro-esophageal reflux disease without esophagitis; Z66 Do not resuscitate; M19.90 Unspecified osteoarthritis, unspecified site; E87.6 Hypokalemia; K27.9 Peptic ulcer, site unspecified, unspecified as acute or chronic, without hemorrhage or perforation; H70.90 Unspecified mastoiditis, unspecified ear; R19.7 Diarrhea, unspecified; Z86.73 Personal history of transient ischemic attack (TIA), and cerebral infarction without residual deficits; Z79.82 Long term (current) use of aspirin
CPT/HCPCS: 36415-UA; 80048-TC; 80053-TC; 80061-TC; 80164-TC; 81001-TC; 83036-90; 83735-TC; 84443-TC; 85025-TC; 86592-TC; 87230-TC; 93005; Z7610

== ENCOUNTER 2018-10-02 12:05 | Inpatient (IN) | payer MEDICARE, MEDICAID ==
[2018-10-02] MEDS ORDERED: Magnesium Hydroxide (MOM) 30 mL UDC PO PRN (14:16)
[2018-10-02] MEDS ORDERED: Diphenoxylate/Atropine 2.5mg Tab PO PRN (14:16)
--- NOTE | 2018-10-02 14:50 | Consultation ---
Consult Note - Consult Note Service Date: 10/02/18 Referring Physician: Alli Stevens Consult Note: PHYSICIAN Consultation Note: Date of Admission: 10/02/18 Purpose of Consultation: C diff colitis. Chief Complaint: Patient CATHY MELENDEZ was admitted to location Medical/ Surgical Unit I with POSITIVE C-DIFF. History of Present Illness: 83-year-old male with a past medical history of diabetes mellitus type 2, hypertension, dementia, brought to the ER for agitation. Patient was admitted to geropsychiatric unit. Patient developed diarrhea and stool for C. difficile NAAT performed and it came positive. Patient was transferred to acute care setting. ID consult was called for antibiotic management. Past Medical History: diabetes mellitus type 2, hypertension, dementia, Allergies Allergy/AdvReac Type Severity Reaction Status Date / Time No Known Allergies Allergy Verified 09/27/18 18:57 Laboratory Results - last 24 hr 10/02/18 14:30 POC Glucose 144 H Home Medication Medication Instructions Recorded Type Acetaminophen [Tylenol] 650 mg PO Q4H PRN tab 10/02/18 Rx Aspirin [Aspirin Chewable] 81 mg PO 0900 ctb 10/02/18 Rx Calcium Carb/Vit D 500mg/200U 1 tab PO DAILY tab 10/02/18 Rx [Oscal w/Vitamin D] Diphenoxylate/Atropine [Lomotil] 1 tab PO TID PRN tab 10/02/[address] [Depakote DR] 500 mg PO HS tcp 10/02/18 Rx Lisinopril [Zestril*] 10 mg PO 0900 tab 10/02/18 Rx Lorazepam [Ativan] 0.5 mg PO Q4HR PRN tab 10/02/18 Rx Magnesium Hydroxide [Milk of 30 ml PO DAILY PRN udc 10/02/18 Rx Magnesia] Multivitamin w/ Minerals 1 tab PO DAILY tab 10/02/18 Rx [Theragran M] Pantoprazole [Protonix] 40 mg PO QDAC ect 10/02/18 Rx Zolpidem Tartrate [Ambien] 5 mg PO HS PRN tab 10/02/18 Rx metroNIDAZOLE [Flagyl] 500 mg PO TID tab 10/02/18 Rx Current Medications Generic Name Dose Route Start Last Admin Trade Name Freq PRN Reason Stop Dose Admin Acetaminophen 650 mg 10/02/18 14:16 Tylenol PO 12/01/18 14:15 Q4H PRN PAIN AND FEVER >100 Aspirin 81 mg 10/03/18 09:00 Aspirin Chewable PO 12/02/18 08:59 0900 ANDI Calcium/Vitamin D 1 tab 10/03/18 09:00 Oscal W/Vitamin D PO 12/02/18 08:59 DAILY ANDI Diphenoxylate HCl/Atropine 1 tab 10/02/18 14:16 Lomotil PO 12/01/18 14:15 TID PRN Diarrhea Divalproex Sodium 500 mg 10/02/18 21:[address] PO 12/01/18 20:59 HS ANDI Protocol Lisinopril 10 mg 10/03/18 09:00 Zestril PO 12/02/18 08:59 0900 ANDI Lorazepam 0.5 mg 10/02/18 14:16 Ativan PO 12/01/18 14:15 Q4HR PRN Anxiety Protocol Magnesium Hydroxide 30 ml 10/02/18 14:16 Milk Of Magnesia PO 12/01/18 14:15 DAILY PRN IF NO BM IN 2 DAYS Metronidazole 500 mg 10/02/18 21:00 Flagyl PO 12/01/18 20:59 TID ANDI Pantoprazole Sodium 40 mg 10/03/18 07:30 Protonix PO 12/02/18 07:29 QDAC ANDI Zolpidem Tartrate 5 mg 10/02/18 14:16 Ambien PO 12/01/18 14:15 HS PRN Insomnia Review of Systems: A 12 point ROS was reviewed with the pertinent positive and negatives noted in the HPI. Social History Smoking Status Smoker, status unknown Physical Exam: General: Comfortable, not in acute distress. HEENT: Head: Normocephalic, atraumatic. Oral cavity: Moist, pink tongue. Eyes : Pallor is present icterus. Pupil PERRLA. EOMI. Face: Symmetrical. Neck: Supple, no JVD. No use of accessory neck muscles. Cardio: S1 and S2 within normal limit. Rhythm regular. No murmur no gallop. Respiratory: CTAP Abdominal: Soft nontender nondistended pulses present Genital/Urinary: Extremities: No cyanosis no clubbing no edema Neurological: Alert, awake, oriented. Assessment: 1. C diff colitis. 2. Leukocytosis. Mild. 3. Dementia. Plan: Continue vanco PO. Thnak you, Dr Balacuit for involving me in taking care of this patient. Signed, Ralph Borrero M.D. [id number]
[2018-10-02] MEDS: Vancomycin HCL 250 mg /10mL UDC PO SCH ×2 (17:26→20:31)
--- NOTE | 2018-10-03 00:17 | Progress Notes ---
DATE: 10/02/2018 PSYCHIATRIC PROGRESS NOTE: SUBJECTIVE: Staff was spoken to. The patient is interviewed. Mood is noted to be anxious and depressed. Affect is constricted. Insight and judgment are noted to be still impaired. Impulse control seems to be improving. No side effects to the medications are noted. The patient is noted to have been tested positive for Clostridium difficile and the patient is going to be possibly transfer to the medical floor for stabilization of this patient. No side effects to the medications are noted at this time. ASSESSMENT: The patient is still impulsive. PLAN: To continue the patient with the supportive therapy. We will follow the patient. [facility]# [id number]
[2018-10-03 05:39] LABS: % EOSINOPHILS 2.2 % (0.0-5.0); % LYMPHOCYTES 23.4 % (20.0-50.0); % MONOCYTES 8.9 % (2.0-10.0); % NEUTROPHILS 64.5 % (40.0-80.0); BASOPHILE ABSOLUTE 0.1 Th/cumm (0-0.2); EOSINOPHILE ABSOLUTE 0.2 Th/cmm (0.1-0.4); HEMATOCRIT 38.8 % (41.0-60); LYMPHOCYTE ABSOLUTE 2.6 Th/cmm (1.5-3.0); MEAN CORPUSCULAR HEMOGLOBIN 30.5 pg (27.0-31.0); MEAN CORPUSCULAR HGB CONC 33.5 pg (28.0-36.0); MEAN PLATELET VOLUME 7.5 fl; NEUTROPHILE ABSOLUTE 7.1 Th/cmm (1.8-8.0); PLATELET COUNT 396 Th/cmm (150-400); RED BLOOD COUNT 4.27 Mil/cmm (3.80-5.80)
[2018-10-03 06:00] LABS: BUN - UREA NITROGEN 32 mg/dL (7-25); CALCIUM SERUM 8.5 mg/dL (8.6-10.3); CARBON DIOXIDE 27.1 mEq/L (21.0-31.0); CHLORIDE 101 mEq/L (98-107); CREATININE - SERUM 0.8 mg/dL (0.7-1.3); GLUCOSE 109 mg/dL (70-105); SODIUM SERUM 136 mEq/L (136-145)
[2018-10-03] MEDS: Multivitamin w/ Minerals Tab PO SCH (08:31)
[2018-10-03] MEDS: Calcium Carb/Vit D 500 mg/200 U Tab PO SCH (08:31)
[2018-10-03] MEDS: Aspirin 81mg Chewable Tab PO SCH (08:31)
[2018-10-03] MEDS: Pantoprazole 40 mg EC Tab PO SCH (08:31)
[2018-10-03] MEDS: Vancomycin HCL 250 mg /10mL UDC PO SCH ×4 (08:33→21:03)
--- NOTE | 2018-10-03 08:35 | History and Physical ---
History of Present Illness - HPI Chief Complaint: Stool + C Difficile HPI: 83 y/o male who was transferred from [facility] to [facility] for +C Difficile Stool. Patient was initially admitted to [facility] for increased agitation and aggressive behavior noted at the SNF toward other residents. During his hospital course patient was found to have +c difficile in his stool. He was subsequently transferred in isolation in [facility] for further treatment and evaluation. Patient has a previous medical history of HTN,DM,hyperlipidemia, h/ o TIA, PUD/GERD, DJD, Dementia. Vital Signs: Last Vital Signs Temp 98.4 F 10/03/18 08:00 Pulse 91 10/03/18 08:00 Resp 18 10/03/18 08:00 BP 107/56 10/03/18 08:00 Pulse Ox 100 10/03/18 08:00 Past Medical History Cardiovascular: Report: HTN, Hyperlipidemia Pulmonary: Report: No Pertinent Hx [employer]OR: Report: TIA GI: Report: GERD Psych: Report: Psychosis Musculoskeletal: Report: No Pertinent Hx Rheumatologic: Report: No pertinent Hx Infectious Disease: Report: No Pertinent Hx Renal/: Report: No Pertinent Hx Endocrine: Report: Diabetes Dermatology: Report: No Pertinent Hx Family Medical History - Family Member Mother History Unknown: Yes Social History Smoke: No Alcohol: None Drugs: None Lives: Alone - Medications Home Medications: Home Medication Medication Instructions Recorded Type Acetaminophen [Tylenol] 650 mg PO Q4H PRN tab 10/02/18 Rx Aspirin [Aspirin Chewable] 81 mg PO 0900 ctb 10/02/18 Rx Calcium Carb/Vit D 500mg/200U 1 tab PO DAILY tab 10/02/18 Rx [Oscal w/Vitamin D] Diphenoxylate/Atropine [Lomotil] 1 tab PO TID PRN tab 10/02/[address] [Depakote DR] 500 mg PO HS tcp 10/02/18 Rx Lisinopril [Zestril*] 10 mg PO 0900 tab 10/02/18 Rx Lorazepam [Ativan] 0.5 mg PO Q4HR PRN tab 10/02/18 Rx Magnesium Hydroxide [Milk of 30 ml PO DAILY PRN udc 10/02/18 Rx Magnesia] Multivitamin w/ Minerals 1 tab PO DAILY tab 10/02/18 Rx [Theragran M] Pantoprazole [Protonix] 40 mg PO QDAC ect 10/02/18 Rx Zolpidem Tartrate [Ambien] 5 mg PO HS PRN tab 10/02/18 Rx metroNIDAZOLE [Flagyl] 500 mg PO TID tab 10/02/18 Rx - Allergies Allergies/Adverse Reactions: Allergies Allergy/AdvReac Type Severity Reaction Status Date / Time No Known Allergies Allergy Verified 09/27/18 18:57 Review of Systems - Review of Systems Constitutional: Report: No Significant Eyes: Report: No Significant ENT: Report: No Significant Respiratory: Report: No Significant Cardiovascular: Report: No Significant Gastrointestinal: Report: No Significant Genitourinary: Report: No Significant Musculoskeletal: Report: No Significant Skin: Report: No Significant Neurological: Report: No Significant Physical Exam - Physical Exam HEENT: Report: Ears Nose Throat within normal limits, Pharnyx within normal limits Neck: Report: Within normal limits Cardiovascular Systems: Report: +s1/s2 noted, Regular, Rate and Rhythm Respiratory: Report: Breath Sounds are within normal limits, Clear to Auscultation of lung crisostomo Abdomen: Report: Non-tender to palpation Back: Report: Inspection of back is within normal limits. Extremities: Report: Non-tender to palpation. Skin: Report: Color of skin is within normal limits - Lab Results All Lab Results last 24 hours: Laboratory Results - last 24 hr 10/02/18 10/03/18 10/03/18 14:30 04:45 04:45 WBC 11.0 H RBC 4.27 Hgb 13.0 Hct 38.8 L MCV 91.0 MCH 30.5 MCHC Differential 33.5 RDW 13.0 Plt Count 396 MPV 7.5 Neutrophils % 64.5 Lymphocytes % 23.4 Monocytes % 8.9 Eosinophils % 2.2 Basophils % 1.0 Sodium 136 Chloride 101 Carbon Dioxide 27.1 Anion Gap 11.7 BUN 32 H Creatinine 0.8 Est GFR ( Amer) TNP Est GFR (Non-Af Amer) TNP BUN/Creatinine Ratio 40.0 Glucose 109 H POC Glucose 144 H Calcium 8.5 L - Assessment Assessment: C difficile Colitis Psychosis HTN DM Hyperlipidemia H/o TIA mastoiditis PUD/GERD DJD Dementia - Plan Plan: continue current treatment
[2018-10-03 12:44] LABS: ANION GAP 11.6 (7.0-16.0); POTASSIUM SERUM 3.7 mEq/L (3.5-5.1)
--- NOTE | 2018-10-03 13:46 | Infectious Disease Prog Note ---
Infectious Disease Subjective - Review of Systems Service Date: 10/03/18 Subjective: 3 BMs yesterday. no fever. Infectious Disease Objective - Results Result Diagrams: 10/03/18 04:45 10/03/18 04:45 Recent Labs: Laboratory Last Values WBC 11.0 Th/cmm (4.8-10.8) H 10/03/18 04:45 RBC 4.27 Mil/cmm (3.80-5.80) 10/03/18 04:45 Hgb 13.0 gm/dL (12-16) 10/03/18 04:45 Hct 38.8 % (41.0-60) L 10/03/18 04:45 MCV 91.0 fl (80-99) 10/03/18 04:45 MCH 30.5 pg (27.0-31.0) 10/03/18 04:45 MCHC Differential 33.5 pg (28.0-36.0) 10/03/18 04:45 RDW 13.0 % (11.5-20.0) 10/03/18 04:45 Plt Count 396 Th/cmm (150-400) 10/03/18 04:45 MPV 7.5 fl 10/03/18 04:45 Neutrophils % 64.5 % (40.0-80.0) 10/03/18 04:45 Lymphocytes % 23.4 % (20.0-50.0) 10/03/18 04:45 Monocytes % 8.9 % (2.0-10.0) 10/03/18 04:45 Eosinophils % 2.2 % (0.0-5.0) 10/03/18 04:45 Basophils % 1.0 % (0.0-2.0) 10/03/18 04:45 Sodium 136 mEq/L (136-145) 10/03/18 04:45 Potassium 3.7 mEq/L (3.5-5.1) 10/03/18 04:45 Chloride 101 mEq/L (98-107) 10/03/18 04:45 Carbon Dioxide 27.1 mEq/L (21.0-31.0) 10/03/18 04:45 Anion Gap 11.6 (7.0-16.0) 10/03/18 04:45 BUN 32 mg/dL (7-25) H 10/03/18 04:45 Creatinine 0.8 mg/dL (0.7-1.3) 10/03/18 04:45 Est GFR ( Amer) TNP 10/03/18 04:45 Est GFR (Non-Af Amer) TNP 10/03/18 04:45 BUN/Creatinine Ratio 40.0 10/03/18 04:45 Glucose 109 mg/dL (70-105) H 10/03/18 04:45 POC Glucose 144 MG/DL (70 - 105) H 10/02/18 14:30 Calcium 8.5 mg/dL (8.6-10.3) L 10/03/18 04:45 - Physical Exam Vitals and I&O: Vital Signs Temp 98.0 F 10/03/18 11:30 Pulse 86 10/03/18 11:30 Resp 18 10/03/18 11:30 BP 110/60 10/03/18 11:30 Pulse Ox 100 10/03/18 11:30 Intake & Output 10/02/18 10/03/18 10/03/18 18:59 06:59 18:59 Intake Total 100 200 Balance 100 200 Weight (lbs) 57.017 kg 56.699 kg 58.967 kg Intake: Oral 100 200 Other: # Voids 1 2 # Bowel Movements 2 2 Stool Characteristics Liquid Liquid Weight Source Bedscale Bedscale Bedscale Active Medications: Current Medications Acetaminophen (Tylenol) 650 mg PO Q4H PRN PRN Reason: PAIN AND FEVER >100 Stop: 12/01/18 14:15 Aspirin (Aspirin Chewable) 81 mg PO 0900 [facility] Stop: 12/02/18 08:59 Last Admin: 10/03/18 08:31 Dose: 81 mg Calcium/Vitamin D (Oscal W/Vitamin D) 1 tab PO DAILY [facility] Stop: 12/02/18 08:59 Last Admin: 10/03/18 08:31 Dose: 1 tab Diphenoxylate HCl/Atropine (Lomotil) 1 tab PO TID PRN PRN Reason: Diarrhea Stop: 12/01/18 14:15 Divalproex Sodium (Depakote Dr) 500 mg PO HS [facility]; Protocol Stop: 12/01/18 20:59 Last Admin: 10/02/18 20:31 Dose: 500 mg Lisinopril (Zestril) 10 mg PO 0900 [facility] Stop: 12/02/18 08:59 Last Admin: 10/03/18 08:32 Dose: 10 mg Lorazepam (Ativan) 0.5 mg PO Q4H PRN; Protocol PRN Reason: Anxiety Stop: 12/01/18 14:15 Last Admin: 10/03/18 08:32 Dose: 0.5 mg Magnesium Hydroxide (Milk Of Magnesia) 30 ml PO DAILY PRN PRN Reason: IF NO BM IN 2 DAYS Stop: 12/01/18 14:15 Pantoprazole Sodium (Protonix) 40 mg PO QDAC [facility] Stop: 12/02/18 07:29 Last Admin: 10/03/18 08:31 Dose: 40 mg Vancomycin HCl (Vancomycin Oral) 250 mg PO QID [facility] Stop: 12/01/18 16:59 Last Admin: 10/03/18 08:33 Dose: 250 mg Zolpidem Tartrate (Ambien) 5 mg PO HS PRN PRN Reason: Insomnia Stop: 12/01/18 14:15 Last Admin: 10/02/18 20:31 Dose: 5 mg General: no acute distress, well developed, well nourished HEENT: atraumatic, normocephalic, PERRLA, EOMI Neck: supple, no thyromegaly, no lymphadenopathy, no rigid Cardiovascular: S1S2, regular, systolic murmur Lungs: clear to auscultation bilaterally, clear to percussion Abdomen: soft, no tender, no distended, no mass, no hepatomegaly Extremities: no cyanosis, no clubbing, no edema Neurological: awake, alert Skin: intact - Procedures Procedures: Procedures Procedure Code Date OTHER GROUP THERAPY 94.44 07/18/12 RECREATIONAL THERAPY 93.81 07/18/12 Infectious Disease Assmt/Plan - Assessment Assessment: 1. C diff colitis. active. 2. Leukocytosis. Mild. 3. Dementia. - Plan Plan: Continue vanco PO for 10 days total. I was asked to discharge the patient. If there is no active intervention offered, he can be discharged to SNF in isolation bed.
--- NOTE | 2018-10-04 03:47 | Progress Notes ---
DATE: 10/03/2018 SUBJECTIVE: Staff was spoken to. The patient is interviewed. Mood is noted to be irritable. Affect is constricted. Insight and judgment at this time are noted to be still impaired. Impulse control is noted to be limited. Coping skills are noted to be limited. The patient has a tendency to scream and yell, but the patient at this time has been able to verbalize the concerns rather than to act out. ASSESSMENT: The patient is still impulsive. PLAN: To continue the patient with the supportive therapy, encouraged the patient to verbalize the concerns rather than to act out. JOB# [id number]
[2018-10-04] MEDS: Pantoprazole 40 mg EC Tab PO SCH (06:44)
--- NOTE | 2018-10-04 08:52 | General Progress Note ---
Subjective - Review of Systems Service Date: 10/04/18 Subjective: Patient is awake,alert but confused. For placement. tolerating PO Vanco. no new changes Objective - Results Result Diagrams: 10/03/18 04:45 10/03/18 04:45 Recent Labs: Laboratory Last Values WBC 11.0 Th/cmm (4.8-10.8) H 10/03/18 04:45 RBC 4.27 Mil/cmm (3.80-5.80) 10/03/18 04:45 Hgb 13.0 gm/dL (12-16) 10/03/18 04:45 Hct 38.8 % (41.0-60) L 10/03/18 04:45 MCV 91.0 fl (80-99) 10/03/18 04:45 MCH 30.5 pg (27.0-31.0) 10/03/18 04:45 MCHC Differential 33.5 pg (28.0-36.0) 10/03/18 04:45 RDW 13.0 % (11.5-20.0) 10/03/18 04:45 Plt Count 396 Th/cmm (150-400) 10/03/18 04:45 MPV 7.5 fl 10/03/18 04:45 Neutrophils % 64.5 % (40.0-80.0) 10/03/18 04:45 Lymphocytes % 23.4 % (20.0-50.0) 10/03/18 04:45 Monocytes % 8.9 % (2.0-10.0) 10/03/18 04:45 Eosinophils % 2.2 % (0.0-5.0) 10/03/18 04:45 Basophils % 1.0 % (0.0-2.0) 10/03/18 04:45 Sodium 136 mEq/L (136-145) 10/03/18 04:45 Potassium 3.7 mEq/L (3.5-5.1) 10/03/18 04:45 Chloride 101 mEq/L (98-107) 10/03/18 04:45 Carbon Dioxide 27.1 mEq/L (21.0-31.0) 10/03/18 04:45 Anion Gap 11.6 (7.0-16.0) 10/03/18 04:45 BUN 32 mg/dL (7-25) H 10/03/18 04:45 Creatinine 0.8 mg/dL (0.7-1.3) 10/03/18 04:45 Est GFR ( Amer) TNP 10/03/18 04:45 Est GFR (Non-Af Amer) TNP 10/03/18 04:45 BUN/Creatinine Ratio 40.0 10/03/18 04:45 Glucose 109 mg/dL (70-105) H 10/03/18 04:45 POC Glucose 144 MG/DL (70 - 105) H 10/02/18 14:30 Calcium 8.5 mg/dL (8.6-10.3) L 10/03/18 04:45 Stool Leukocyte MODERATE WBC SEEN 10/03/18 15:50 - Physical Exam Vitals and I&O: Vital Signs Temp 97.1 F 10/04/18 08:44 Pulse 103 10/04/18 08:44 Resp 18 10/04/18 08:44 BP 170/63 10/04/18 08:44 Pulse Ox 99 10/04/18 08:44 Intake & Output 10/03/18 10/04/18 10/04/18 18:59 06:59 18:59 Intake Total 900 200 Output Total 1 Balance 899 200 Weight (lbs) 58.967 kg 58.967 kg Intake: Oral 900 200 Output: Stool 1 Other: # Voids 3 3 # Bowel Movements 2 3 Stool Characteristics Liquid Liquid Weight Source Bedscale Bedscale Active Medications: Current Medications Acetaminophen (Tylenol) 650 mg PO Q4H PRN PRN Reason: PAIN AND FEVER >100 Stop: 12/01/18 14:15 Aspirin (Aspirin Chewable) 81 mg PO 0900 [facility] Stop: 12/02/18 08:59 Last Admin: 10/03/18 08:31 Dose: 81 mg Calcium/Vitamin D (Oscal W/Vitamin D) 1 tab PO DAILY [facility] Stop: 12/02/18 08:59 Last Admin: 10/03/18 08:31 Dose: 1 tab Diphenoxylate HCl/Atropine (Lomotil) 1 tab PO TID PRN PRN Reason: Diarrhea Stop: 12/01/18 14:15 Divalproex Sodium (Depakote Dr) 500 mg PO HS [facility]; Protocol Stop: 12/01/18 20:59 Last Admin: 10/03/18 21:03 Dose: 500 mg Lisinopril (Zestril) 10 mg PO 0900 [facility] Stop: 12/02/18 08:59 Last Admin: 10/03/18 08:32 Dose: 10 mg Lorazepam (Ativan) 0.5 mg PO Q4H PRN; Protocol PRN Reason: Anxiety Stop: 12/01/18 14:15 Last Admin: 10/03/18 16:11 Dose: 0.5 mg Magnesium Hydroxide (Milk Of Magnesia) 30 ml PO DAILY PRN PRN Reason: IF NO BM IN 2 DAYS Stop: 12/01/18 14:15 Pantoprazole Sodium (Protonix) 40 mg PO QDAC [facility] Stop: 12/02/18 07:29 Last Admin: 10/04/18 06:44 Dose: 40 mg Vancomycin HCl (Vancomycin Oral) 250 mg PO QID [facility] Stop: 12/01/18 16:59 Last Admin: 10/03/18 21:03 Dose: 250 mg Zolpidem Tartrate (Ambien) 5 mg PO HS PRN PRN Reason: Insomnia Stop: 12/01/18 14:15 Last Admin: 10/02/18 20:31 Dose: 5 mg General: Alert, No acute distress HEENT: Atraumatic, PERRLA, EOMI Neck: Supple Cardiovascular: Regular rate, Normal S1, Normal S2 Lungs: Clear to auscultation Abdomen: Bowel sounds Extremities: no Clubbing, no Cyanosis, no Edema - Procedures Procedures: Procedures Procedure Code Date OTHER GROUP THERAPY 94.44 07/18/12 RECREATIONAL THERAPY 93.81 07/18/12 Assessment/Plan - Assessment Assessment: C difficile Colitis Psychosis HTN DM Hyperlipidemia H/o TIA mastoiditis PUD/GERD DJD Dementia - Plan Plan: continue current treatment
[2018-10-04] MEDS: Vancomycin HCL 250 mg /10mL UDC PO SCH ×4 (09:00→21:41)
[2018-10-04] MEDS: Aspirin 81mg Chewable Tab PO SCH (09:00)
[2018-10-04] MEDS: Calcium Carb/Vit D 500 mg/200 U Tab PO SCH (09:00)
[2018-10-04] MEDS: Multivitamin w/ Minerals Tab PO SCH (09:00)
--- NOTE | 2018-10-04 20:44 | Progress Notes ---
DATE: 10/04/2018 SUBJECTIVE: Staff was spoken to. The patient is interviewed. Mood is noted to be irritable. Affect is constricted. Insight and judgment are noted to be still impaired. Impulse control is noted to be poor. Coping skills are noted to very poor. No side effects to the medications are noted. The patient has been still testing the limits. The patient is currently being treated for the C. diff and the patient is being closely monitored for the aggressive behavior. PLAN: To continue the patient with the supportive therapy and followup. JOB# [id number]
[2018-10-05] MEDS: Pantoprazole 40 mg EC Tab PO SCH (06:48)
--- NOTE | 2018-10-08 15:58 | Discharge Summary ---
DATE OF DISCHARGE: 10/05/2018 PRELIMINARY DIAGNOSES: 1. Clostridium difficile colitis. 2. Psychosis. 3. Hypertension. 4. Diabetes mellitus. 5. Hyperlipidemia. 6. History of transient ischemic attack. 7. Mastoiditis. 8. Peripheral vascular disease. 9. Gastroesophageal reflux disease. 10. Diabetes. 11. Degenerative joint disease. 12. Dementia. DISCHARGE DIAGNOSES: 1. Clostridium difficile colitis. 2. Psychosis. 3. Hypertension. 4. Diabetes mellitus. 5. Hyperlipidemia. 6. History of transient ischemic attack. 7. Mastoiditis. 8. Peripheral vascular disease. 9. Gastroesophageal reflux disease. 10. Diabetes. 11. Degenerative joint disease. 12. Dementia. BRIEF HISTORY OF PRESENT ILLNESS: This is an 83-year-old male who was transferred from [facility] to [facility] for positive C. diff in the stool. The patient was initially admitted to [facility] for increased agitation and aggressive behavior noted at the custodial facility. The patient was noted to have a change in his behavior and was sent here for further evaluation and treatment. During his hospital course, he was found to have a stool positive for C. diff and was subsequently transferred here to [facility] for further treatment and evaluation. PAST MEDICAL HISTORY: Includes diabetes, hypertension, hyperlipidemia, TIA, PVD, GERD, DJD and dementia. HOSPITAL COURSE: The patient improved during his hospital stay, was initially started on vancomycin IV, which was later changed to vancomycin p.o. The patient was discharged in stable condition to continue vancomycin p.o. for the next 10 days. [facility]# [id number]
== END 2018-10-05 07:57 | DRG 372 ==
LOC: MSI 12:05
PROVIDERS: ADMIT Family Medicine; ATTEND Family Medicine
DX: A04.72 Enterocolitis due to Clostridium difficile, not specified as recurrent (principal); H70.009 Acute mastoiditis without complications, unspecified ear; F29 Unspecified psychosis not due to a substance or known physiological condition; I10 Essential (primary) hypertension; E11.9 Type 2 diabetes mellitus without complications; E78.5 Hyperlipidemia, unspecified; K21.9 Gastro-esophageal reflux disease without esophagitis; F03.90 Unspecified dementia, unspecified severity, without behavioral disturbance, psychotic disturbance, mood disturbance, and anxiety; H70.90 Unspecified mastoiditis, unspecified ear; M19.90 Unspecified osteoarthritis, unspecified site; Z79.82 Long term (current) use of aspirin; Z86.73 Personal history of transient ischemic attack (TIA), and cerebral infarction without residual deficits
CPT/HCPCS: 36415-UA; 80048-TC; 82948-90; 85025-TC; 89055-TC; J3370; X7704; Z7610